=== PATIENT | male | born 1940 | race Caucasian/White ===

== ENCOUNTER 2018-10-06 13:34 | Day surgery (SDC) | payer MEDICARE, BC ==
[~2018-10-06] VITALS: Ht 177.8 cm; Wt 105.0 kg
[2018-10-06] VITALS (7 sets, daily range): BP systolic 130–148; BP diastolic 56–67; PULSE 59–65; TEMP 97.2–98
[~2018-10-06 13:34] MED LIST: ASPIRIN 81M81 MG/TA2 PO; BUPROPION300 MG PO; MEVACOR40 MG PO; MOBIC15 MG PO; OMEGA-3 1000 MG1 CAP PO; PRINIVIL10 MG PO
--- NOTE | 2018-10-06 16:55 | NUR ---
PATIENT ARRIVED TO ROOM 342 VIA CART FROM PACU. PATIENT A&OX4. SEE ASSESSMENT. SANTANA CATHETER TO DEPENDENT DRAINAGE. POST-OP VSS. PATIENT TOLERATING CLEAR LIQUIDS WITHOU N/V. AT BEDSIDE. NO NEEDS AT THIS TIME.
--- NOTE | 2018-10-06 19:22 | NUR ---
REPORT GIVEN TO MARGOTH LERNER.
--- NOTE | 2018-10-06 20:05 | NUR ---
Left forearm IV removed with full catheter intact; PT reported compete understanding of discharge instructions. PT and spouse denies questions at time of discharge; Pending escort by staff via W/C to personal transport vehicle. CDA
== END 2018-10-06 20:34 | disposition home or self-care (01) ==
LOC: SDCO 13:34 → SURG 15:55 → SDCO 16:00
DX: N35.919 Unspecified urethral stricture, male, unspecified site (principal); Z87.440 Personal history of urinary (tract) infections; I10 Essential (primary) hypertension; G47.33 Obstructive sleep apnea (adult) (pediatric); Z87.891 Personal history of nicotine dependence; Z79.899 Other long term (current) drug therapy; Z79.82 Long term (current) use of aspirin; M19.90 Unspecified osteoarthritis, unspecified site; R13.10 Dysphagia, unspecified
CPT/HCPCS: OP; C1769; J0690; J2704; J3010; J7120

== ENCOUNTER → 2021-06-03 | Outpatient (CLI) | payer MEDICARE, BC | LOC: ZCOL.LAB 10:19 | DX: Z01.818 Encounter for other preprocedural examination (principal); Z20.822 Contact with and (suspected) exposure to COVID-19 ==

== ENCOUNTER 2022-08-24 13:17 | Day surgery (SDC) | payer MEDICARE, BC ==
[~2022-08-24] VITALS: Ht 175.3 cm; Wt 97.4 kg
[2022-08-24] MEDS ORDERED: ALLEGRA 60MG TA60 MG PO (13:45)
[2022-08-24] MEDS ORDERED: LYRICA 75MG CAP75 MG PO (13:46)
[2022-08-24] MEDS ORDERED: SINGULAIR 110 MG/TAB PO (13:46)
[2022-08-24] MEDS ORDERED: CIPRO 500MG TA500 MG PO (13:48)
[2022-08-24 14:34] VITALS: BP 119/60; PULSE 72; TEMP 97.4
[2022-08-24 16:30] VITALS: BP 132/57; PULSE 80; TEMP 97.9
[2022-08-24 16:45] VITALS: BP 137/64; PULSE 82
[2022-08-24 17:00] VITALS: BP 133/65; PULSE 80
[2022-08-24 17:15] VITALS: BP 138/65; PULSE 82
--- NOTE | 2022-08-24 17:30 | NUR ---
1630 RETURNS TO ROOM 1 PER CART. PATIENT AWAKE, ALERT. RESP UNLABORED. HOB ELEVATED 30 DEGREES. LEFT HEARING DEVICE IN PLACE, HOWEVER SUCCESSFUL VERBAL COMMUNICATION IS QUESTIONABLE. PATIENT OFFERS NO COMPLAINTS OF PAIN. NO FACIAL GRIMACING, RESTLESSNESS POTENTIAL SIGNS OF DISCOMFORT. VITAL SIGNS OBTAINED. ABD SOFT. SUPRAPUBIC CATHETER IN PLACE. DRESSING AT INSERTION SITE CLEAN DRY AND INTACT. URINE RETURN IS LOY WITH PINK TINGE. AND DAUGHTER IN ROOM. CALL LIGHT AT SIDE 1645 REMAINS AWAKE. WHEN ASKED ABOUT DISCOMFORT, PATIENT DOES NOD HEAD NO 1700 TOLERATES WATER WITHOUT NAUSEA 1718 DISCHARGE INSTRUCTIONS REVIEWED VIA TELEPHONE WITH BOBBI STAHL RN AT [facility]. COPY OF INSTRUCTIONS GIVEN TO EMS PERSON[facility] TO PROVIDE TO NURSE ON RETURN TO [facility]. 1725 EMS PERSONEL TRANSFER PATIENT TO THEIR CART FOR DISCHARGE
== END 2022-08-24 17:30 | disposition home or self-care (01) ==
LOC: SDCO 13:17
DX: N35.011 Post-traumatic bulbous urethral stricture (principal); N31.9 Neuromuscular dysfunction of bladder, unspecified; N39.46 Mixed incontinence; Z91.199 Patient's noncompliance with other medical treatment and regimen due to unspecified reason; Z87.891 Personal history of nicotine dependence
CPT/HCPCS: C1769; J0690; J1100; J2405; J2704; J3010